=== PATIENT | female | born 1980 | race Caucasian/White ===

== ENCOUNTER 2018-01-12 10:06 | Emergency (ER) | payer SELFPAY ==
[~2018-01-12] VITALS: Ht 175.3 cm; Wt 82.0 kg
[2018-01-12 10:25] VITALS: BP 133/90
== END 2018-01-12 14:46 | disposition home or self-care (01) ==
LOC: ED 13:09
DX: S82.62XA Displaced fracture of lateral malleolus of left fibula, initial encounter for closed fracture (principal); W01.0XXA Fall on same level from slipping, tripping and stumbling without subsequent striking against object, initial encounter; Y93.89 Activity, other specified; Y92.89 Other specified places as the place of occurrence of the external cause; Y99.8 Other external cause status
CPT/HCPCS: 29515; 99284